=== PATIENT | male | born 1995 | race Caucasian/White ===

== ENCOUNTER 2019-01-18 11:16 | Emergency (ER) | payer SELFPAY ==
[~2019-01-18] VITALS: Ht 188 cm; Wt 70.0 kg
[2019-01-18 11:54] LABS: BASOPHILS # (AUTO) 0.03 x10^3/uL (0-0.1); BASOPHILS % (AUTO) 0 % (0-1); EOSINOPHILS # (AUTO) 0.06 x10^3/uL (0-0.4); EOSINOPHILS % (AUTO) 1 % (1-7); LYMPHOCYTES # (AUTO) 1.68 x10^3/uL (1-3.4); LYMPHOCYTES % (AUTO) 26 % (22-44); MD NO; MEAN CORPUSCULAR HEMOGLOBIN 30.8 pg (27.5-34.5); MEAN CORPUSCULAR HGB CONC 33.7 g/dL (33.2-36.2); MEAN CORPUSCULAR VOLUME 91.4 fL (81-97); MEAN PLATELET VOLUME 7.8 fL (7.4-10.4); MONOCYTES # (AUTO) 0.61 x10^3/uL (0.2-0.8); MONOCYTES % (AUTO) 9 % (2-9); NEUTROPHILS # (AUTO) 4.09 x10^3/uL (1.8-6.8); NEUTROPHILS % (AUTO) 63 % (42-75); PLATELET COUNT 246 x10^3/uL (130-400); RED BLOOD COUNT 5.11 x10^6/uL (4.38-5.82); RED CELL DISTRIBUTION WIDTH 12.9 % (9.4-14.8)
[2019-01-18 12:03] LABS: ALANINE AMINOTRANSFERASE 28 U/L (12-78); ALBUMIN 4.5 g/dL (3.4-5.0); ANION GAP 5 mmol/L (5-15); CALCIUM 9.2 mg/dL (8.5-10.1); CHLORIDE 107 mmol/L (98-107); CREATININE 0.99 mg/dL (0.7-1.3)
[2019-01-18 12:05] LABS: ALKALINE PHOSPHATASE 70 U/L (45-117); TOTAL PROTEIN 7.2 g/dL (6.4-8.2)
--- NOTE | 2019-01-18 12:31 | NUR ---
pt to room from lobby
[2019-01-18] MEDS ORDERED: ONDANSETRON 2MG/ML, 2ML ONE (12:47)
[2019-01-18] MEDS ORDERED: MORPHINE SULFATE 4 MG/ML, 1ML ONE (12:48)
[2019-01-18] MEDS ORDERED: ONDANSETRON 2MG/ML, 2ML IVPush ONE (13:00)
[2019-01-18] MEDS ORDERED: MORPHINE SULFATE 4 MG/ML, 1ML IVPush PRN (13:00)
[2019-01-18] MEDS ORDERED: SODIUM CHLORIDE FLUSH 10ML SYR IVF ONE (13:00)
--- NOTE | 2019-01-18 13:26 | NUR ---
PATIENT FROM CT. URINAL GIVEN. PATIENT STATES THAT THE PAIN MEDICATION IS NOT WORKING WELL.
[2019-01-18 13:42] LABS: MICROSCOPIC NOT IND
[2019-01-18 13:47] LABS: CULTURE INDICATED? NO
[2019-01-18] MEDS ORDERED: OMNIPAQUE 350 MG/ML, 100ML BOTTLE ONE (13:56)
[2019-01-18] MEDS ORDERED: HYDROmorphone 1 MG/ML, 1ML AMP IV ONE (14:00)
[2019-01-18 14:03] VITALS: BP 119/68
--- NOTE | 2019-01-18 14:04 | NUR ---
pt upright on gurney with eyes closed, responds approp ot staff, NAD, comfort measures provided, call light within reach.
--- NOTE | 2019-01-18 14:29 | NUR ---
FIRST CONTACT WITH PT: Patient/Caregiver given discharge instructions and they have confirmed that they understand the instructions. Patient ambulatory with steady gait. PIV DISCONTINUED WITH TIP INTACT. PRESSURE DRESSING APPLIED. PT LEFT WITH ALL PERSONAL BELONGINGS.
== END 2019-01-18 14:31 | disposition home or self-care (01) ==
LOC: ED 14:10
DX: R10.31 Right lower quadrant pain (principal); R11.2 Nausea with vomiting, unspecified
CPT/HCPCS: 36415; 74177; 80053; 81003; 83690; 85025; 96374; 96375; 99284; J2405; Q9967

== ENCOUNTER 2019-08-18 17:41 | Emergency (ER) | payer OTHER ==
[~2019-08-18] VITALS: Ht 180.3 cm; Wt 85.0 kg
[2019-08-18 17:51] VITALS: BP 114/73
== END 2019-08-18 17:57 ==
LOC: ED 17:51
DX: S09.92XA Unspecified injury of nose, initial encounter (principal); V49.49XA Driver injured in collision with other motor vehicles in traffic accident, initial encounter; Y93.89 Activity, other specified; Y92.89 Other specified places as the place of occurrence of the external cause; Y99.8 Other external cause status
CPT/HCPCS: 99283